=== PATIENT | female | born 2000 | race African-American/Black ===

== ENCOUNTER 2019-03-27 23:52 | Inpatient (IN) | payer OTHER ==
[~2019-03-27] VITALS: Ht 172.7 cm; Wt 81.6 kg
[2019-03-28] VITALS (7 sets, daily range): BP systolic 117–128; BP diastolic 51–80
[2019-03-28] MEDS ORDERED: CARBOPROST TROMETHAMINE 250 MCG/ML AMPUL IM PRN
[2019-03-28] MEDS ORDERED: DEXT 5%/LR + PITOCIN 20UNITS/L 1,000 ML IV SCH
[2019-03-28] MEDS ORDERED: LIDOCAINE HCL 1% 20ML VIAL (Pyxis) INJ INFIL SCH
[2019-03-28] MEDS ORDERED: RHO(D) IMMUNE GLOBULIN 300 MCG/SYR IM PRN (00:30)
[2019-03-28] MEDS ORDERED: METHYLERGONOVINE MALEATE 0.2 MG/ML IM PRN ×2 (00:30)
[2019-03-28] MEDS ORDERED: BISACODYL 10MG SUPP PR PRN (00:30)
[2019-03-28] MEDS ORDERED: GLYCERIN/WITCH HAZEL LEAF MEDICATED PAD TOP PRN (00:30)
[2019-03-28] MEDS ORDERED: DIPHENHYDRAMINE 25MG CAPSULE PO PRN (00:30)
[2019-03-28] MEDS ORDERED: ACETAMINOPHEN WITH CODEINE 300/30MG TABLET PO PRN ×2 (00:30)
[2019-03-28] MEDS ORDERED: HEMORRHOIDAL SUPP PR PRN (00:30)
[2019-03-28] MEDS ORDERED: LANOLIN OINT 7GM TUBE TOP PRN (00:30)
[2019-03-28 01:10] LABS: BASOPHILS % 0.1 % (0.0-2.0); HEMATOCRIT. 37.2 % (36.0-48.0); HEMOGLOBIN. 12.5 g/dL (12.0-16.0); LYMPHOCYTES % 9.1 % (20.0-50.0); MEAN CORPUSCULAR HEMOGLOBIN 29.5 pg (28.0-32.0); MEAN PLATELET VOLUME 9.1 fl (7.4-10.4); MONOCYTES % 4.2 % (2.0-8.0); NEUTROPHILS % 86.6 % (40.0-76.0); PLATELET 254 x1000/uL (130-400); RED BLOOD CELL COUNT 4.23 mill/uL (4.2-5.4); RED CELL DISTRIBUTION WIDTH 14.4 % (11.6-14.6)
[2019-03-28 01:16] LABS: CLARITY URINE CLEAR (CLEAR); COLOR URINE DARK YELLOW (YELLOW); KETONES URINE 4+ (NEGATIVE); LEUKOCYTE ESTERASE URINE NEGATIVE (NEGATIVE); NITRITE URINE NEGATIVE (NEGATIVE); OCCULT BLOOD URINE 2+ (NEGATIVE); PROTEIN URINE 3+ (NEGATIVE); SPECIFIC GRAVITY URINE 1.026 (1.005-1.030)
[2019-03-28 01:19] LABS: INR 0.9; PARTIAL THROMBOPLASTIN TIME 27.1 sec (23.4-31.0); PROTHROMBIN TIME 9.8 sec (9.6-11.0)
[2019-03-28 01:27] LABS: *AMPHETAMINES SCREEN URINE NEGATIVE (NEGATIVE); PHENCYCLIDINE URINE SCREEN NEGATIVE (NEGATIVE)
[2019-03-28 01:28] LABS: *BARBITURATES SCREEN URINE NEGATIVE (NEGATIVE); *BENZODIAZEPINES SCREEN URINE NEGATIVE (NEGATIVE); *COCAINE SCREEN URINE NEGATIVE (NEGATIVE); CANNABINOID URINE SCREEN NEGATIVE (NEGATIVE); METHADONE URINE SCREEN NEGATIVE (NEGATIVE); OPIATES URINE SCREEN NEGATIVE (NEGATIVE)
[2019-03-28] MEDS: OXYTOCIN 10 UNITS/ML 1ML IM NR ×2 (01:44→01:45)
[2019-03-28 02:29] LABS: HEPATITIS B SURFACE ANTIGEN NEGATIVE
[2019-03-28] MEDS ORDERED: MAGNESIUM/ALUMINUM HYDROXIDE/SIMETHICONE 30ML UDC PO SCH (07:30)
[2019-03-28] MEDS ORDERED: SIMETHICONE 80MG TABLET CHEW PO SCH (08:00)
[2019-03-28] MEDS: PRENATAL VIT/FE FUMARATE/FA TABLET PO SCH (08:18)
[2019-03-28] MEDS: IBUPROFEN 400MG TABLET PO PRN (08:19)
[2019-03-28] MEDS ORDERED: DOCUSATE SODIUM 100MG CAPSULE PO SCH (21:00)
[2019-03-29 04:00] VITALS: BP 122/72
[2019-03-29 05:03] LABS: BASOPHILS % 0.3 % (0.0-2.0); EOSINOPHILS % 0.9 % (0.0-5.0); HEMATOCRIT. 32.4 % (36.0-48.0); MEAN CORPUSCULAR HEMOGLOBIN 29.7 pg (28.0-32.0); MEAN CORPUSCULAR VOLUME 87.7 fL (81.0-99.0); MEAN PLATELET VOLUME 8.6 fl (7.4-10.4); MONOCYTES % 8.1 % (2.0-8.0); NEUTROPHILS % 65.7 % (40.0-76.0); PLATELET 220 x1000/uL (130-400); RED BLOOD CELL COUNT 3.69 mill/uL (4.2-5.4); RED CELL DISTRIBUTION WIDTH 14.4 % (11.6-14.6)
[2019-03-29] MEDS ORDERED: FERROUS SULFATE 325MG TABLET PO SCH (07:30)
[2019-03-29 07:53] VITALS: BP 124/80
[2019-03-29] MEDS: IBUPROFEN 400MG TABLET PO PRN (08:36)
[2019-03-29] MEDS: PRENATAL VIT/FE FUMARATE/FA TABLET PO SCH (08:36)
== END 2019-03-29 12:55 | disposition home or self-care (01) | DRG 560 ==
LOC: 8 EST LDRP 23:52 → OBSVTOIN 23:52 → 8EST 03-28 03:00
PROVIDERS: ADMIT Obstetrics & Gynecology; ATTEND Obstetrics & Gynecology
PROC: 10E0XZZ Delivery of Products of Conception, External Approach (ICD-10-PCS; principal; 2019-03-28)
PROC: 0KQM0ZZ Repair Perineum Muscle, Open Approach (ICD-10-PCS; 2019-03-28)
DX: O70.1 Second degree perineal laceration during delivery (principal); Z37.0 Single live birth; Z3A.40 40 weeks gestation of pregnancy
CPT/HCPCS: 36415; 80305; 86592; 86703; 86762; 86850; 86900; 87340; 99281; G0378; J3490